=== PATIENT | female | born 1935 | race Caucasian/White ===

== ENCOUNTER 2017-12-07 19:15 | Emergency (ER) | payer MEDICARE, MEDICAID ==
[2017-12-07 19:32] VITALS: BP 179/62
[2017-12-07] MEDS ORDERED: LORazepam 2 MG/ML Syringe IVPUSH ONE (19:32)
--- NOTE | 2017-12-07 19:35 | EDM.PDOC ---
ED HPI GENERAL MEDICAL PROBLEM - General Chief Complaint: Chest Pain Stated Complaint: chest pain [id number] Time Seen by Provider: 12/07/17 19:30 Source of Information: Reports: Patient History Limitations: Reports: No Limitations - History of Present Illness INITIAL COMMENTS - FREE TEXT/NARRATIVE: onset CP about 1 1/2 hours ago. got really worried about heart attack already had 2x CABG many years ago. now has numbness in hands and left jaw feels tight. 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: Reports: Nitroglycerin Chest Pain Score (Numeric/FACES): 7 - Related Data Allergies Allergy/AdvReac Type Severity Reaction Status Date / Time flu shot Allergy Difficulty Uncoded 02/21/17 15:08 Breathing Home Meds: Home Meds Aspirin [Halfprin] 81 mg PO DAILY 05/14/13 [History] Atenolol [Tenormin] 50 mg PO DAILY 05/14/13 [History] Clopidogrel [Plavix] 75 mg PO DAILY 05/14/13 [History] Esomeprazole [NexIUM] 20 mg PO DAILY 05/14/13 [History] Levothyroxine 25 mcg PO DAILY 05/14/13 [History] Tiotropium [Spiriva Handihaler] 1 puff INH DAILY 05/14/13 [History] Simvastatin [Zocor] 40 mg PO DAILY 06/10/16 [History] Nitroglycerin [Nitrostat] 1 tab SL ASDIRECTED PRN 02/21/17 [History] Albuterol Sulfate 1 inhalation NEB TID PRN 12/07/17 [History] Atenolol [Tenormin] 50 mg PO DAILY 12/07/17 [History] Ciprofloxacin HCl [Cipro] 500 mg PO TIDAC 12/07/17 [History] Isosorbide Mononitrate [Imdur] 30 mg PO DAILY 12/07/17 [History] LORazepam [Ativan] 0.5 mg PO DAILY PRN 12/07/17 [History] metroNIDAZOLE [Flagyl] 500 mg PO TID 12/07/17 [History] Past Medical History Cardiovascular History: Reports: Bypass, CAD, High Cholesterol, Hypertension Respiratory History: Reports: COPD Gastrointestinal History: Reports: GERD Musculoskeletal History: Reports: Other (See Below) Other Musculoskeletal History: myalgia Psychiatric History: Reports: Anxiety Endocrine/Metabolic History: Reports: Diabetes, Type II, Hypothyroidism Social & Family History - Caffeine Use Caffeine Use: Reports: Coffee - Living Situation & Occupation Living situation: Reports: Occupation: Retired ED ROS GENERAL - Review of Systems Review Of Systems: ROS reveals no pertinent complaints other than HPI. ED EXAM, GENERAL - Physical Exam Exam: See Below Exam Limited By: No Limitations General Appearance: Alert, WD/WN, Anxious, Other (distraught) Ears: Hearing Grossly Normal Throat/Mouth: Normal Voice, No Airway Compromise Head: Atraumatic Neck: Non-Tender, Full Range of Motion Respiratory/Chest: No Respiratory Distress Cardiovascular: Regular Rate, Rhythm GI/Abdominal: Soft, Non-Tender Neurological: Alert, Oriented, Normal Cognition, Normal Gait, No Motor/Sensory Deficits, Other (rigth facial droop occurred long time ago from carotid surgery) Psychiatric: Anxious Skin Exam: Warm, Dry, Normal Color Lymphatic: No Adenopathy Course - Vital Signs Last Recorded V/S: Last Vital Signs Temp 36.3 C 12/07/17 19:30 Pulse 62 12/07/17 19:30 Resp 20 12/07/17 19:30 BP 179/62 H 12/07/17 19:30 Pulse Ox 96 12/07/17 19:30 - Orders/Labs/Meds Orders: Active Orders 24 hr Category Date Time Status EKG 12 Lead [EKG Documentation Completion] [RC] STAT Care 12/07/17 19:35 Active Labs: Laboratory Tests 12/07/17 12/07/17 12/07/17 Range/Units 19:50 19:50 21:55 WBC 5.8 (5.0-10.0) 10^3/uL RBC 4.49 (4.2-5.4) 10^6/uL Hgb 12.8 (12.0-16.0) g/dL Hct 39.3 (37.0-47.0) % MCV 87.5 (80-100) fL MCH 28.5 (27.0-34.0) pg MCHC 32.6 L (33.0-35.0) g/dL Plt Count 201 (150-450) 10^3/uL Neut % (Auto) 51.8 (42.2-75.2) % Lymph % (Auto) 30.2 (20.5-50.1) % [place] % (Auto) 11.0 H (2-8) % Eos % (Auto) 6.0 H (1.0-3.0) % Baso % (Auto) 1.0 (0.0-1.0) % Sodium 137 (135-145) mmol/L Potassium 4.0 (3.6-5.0) mmol/L Chloride 102 (101-111) mmol/L Carbon Dioxide 27.0 (21.0-31.0) mmol/L Anion Gap 12.0 BUN 12 (7-18) mg/dL Creatinine 0.7 (0.6-1.3) mg/dL Est Cr Clr Drug Dosing 50.70 mL/min Estimated GFR (MDRD) > 60 BUN/Creatinine Ratio 17.14 Glucose 113 H (74-105) mg/dL Calcium 9.5 (8.4-10.2) mg/dl Total Bilirubin 0.5 (0.2-1.0) mg/dL AST 33 (10-42) IU/L ALT 20 (10-60) IU/L Alkaline Phosphatase 42 (42-121) IU/L Troponin I < 0.02 < 0.02 (0.00-0.02) ng/ml Total Protein 6.4 L (6.7-8.2) g/dl Albumin 4.1 (3.2-5.5) g/dl Globulin 2.3 Albumin/Globulin Ratio 1.78 Meds: Medications Discontinued Medications Generic Name Dose Route Start Last Admin Trade Name Freq PRN Reason Stop Dose Admin Lorazepam 1 mg 12/07/17 19:32 12/07/17 20:03 Ativan IVPUSH 12/07/17 19:33 1 mg ONETIME ONE Administration - Re-Assessments/Exams Free Text/Narrative Re-Assessment/Exam: 12/07/17 22:31 results discussed with pt who remains pain/discomfort free. states really wants to go home. Departure - Departure Time of Disposition: 22:32 Disposition: Home, Self-Care 01 Condition: Good Clinical Impression: Atypical chest pain Instructions: Nonspecific Chest Pain, [id number] Forms: ED Department Discharge Additional Instructions: 1) rest 2) follow up with family doctor Sunday for possible STRESS TEST 3) recheck if there is any change or concern - My Orders Last 24 Hours: My Active Orders 12/07/17 19:35 EKG 12 Lead [EKG Documentation Completion] [RC] STAT - Assessment/Plan Last 24 Hours: My Active Orders 12/07/17 19:35 EKG 12 Lead [EKG Documentation Completion] [RC] STAT
[2017-12-07 20:27] LABS: CHLORIDE,CL 102 mmol/L (101-111); SODIUM,NA 137 mmol/L (135-145)
--- NOTE | 2017-12-10 16:52 | EKG ---
12/07/2017 - YE ODELL - TIME: 7:23 p.m. FINDINGS: Sinus rhythm at 62, probable old inferior infarct. [facility] /[id number]
== END 2017-12-07 22:40 | disposition home or self-care (01) ==
LOC: DL.ED 19:15
DX: R07.89 Other chest pain (principal); E11.9 Type 2 diabetes mellitus without complications; J44.9 Chronic obstructive pulmonary disease, unspecified; Z88.7 Allergy status to serum and vaccine; Z79.82 Long term (current) use of aspirin; Z79.899 Other long term (current) drug therapy
CPT/HCPCS: 36415; 71045; 80053; 84484; 85025; 93005; 96374; 99285; J2060; 93010; 99284

== ENCOUNTER 2019-01-20 14:33 | Emergency (ER) | payer MEDICARE ==
--- NOTE | 2019-01-20 14:41 | EDM.PDOC ---
ED HPI GENERAL MEDICAL PROBLEM - General Chief Complaint: Neuro Symptoms/Deficits Stated Complaint: RT SIDE SHUT DOWN/DIZZY Time Seen by Provider: 01/20/19 14:41 Source of Information: Reports: Patient, Old Records, RN, RN Notes Reviewed History Limitations: Reports: No Limitations - History of Present Illness INITIAL COMMENTS - FREE TEXT/NARRATIVE: Pt presents to ER from home by POV with c/o sudden onset of right arm and leg weakness. Pt was noted to have significant left face droop which affected her speech, but informed the children's zoo caretaker that the facial symptoms are chronic/stable and are the result of a complication from when she had a left carotid endarterectomy several years ago. Pt had a CT Head on 01/15/19 due to severe persistent headache, but denies headache at this time. She admits to recurring episodes of angina and is scheduled to see Dr. Zafar next week. Pt states that in addition to Rt sided weakness she feels some tingling in the right arm and leg as well. She denies any visual changes, difficulty with speech or swallowing. Denies current chest pain or pressure. Onset: Today, Sudden Onset Date: 01/20/19 Onset Time: 14:00 Duration: Improving Location: Reports: Upper Extremity, Right, Lower Extremity, Right Severity: Severe Improves with: Reports: None Worsens with: Reports: None Associated Symptoms: Reports: No Other Symptoms Headache Pain Score (Numeric/FACES): 9 - Related Data Allergies Allergy/AdvReac Type Severity Reaction Status Date / Time flu shot Allergy Difficulty Uncoded 01/20/19 16:00 Breathing Home Meds: Home Meds Aspirin [Halfprin] 81 mg PO DAILY 05/14/13 [History] Atenolol [Tenormin] 50 mg PO DAILY 05/14/13 [History] Clopidogrel [Plavix] 75 mg PO DAILY 05/14/13 [History] Esomeprazole [NexIUM] 20 mg PO DAILY 05/14/13 [History] Levothyroxine 25 mcg PO DAILY 05/14/13 [History] Tiotropium [Spiriva Handihaler] 1 puff INH DAILY 05/14/13 [History] Simvastatin [Zocor] 40 mg PO DAILY 06/10/16 [History] Nitroglycerin [Nitrostat] 1 tab SL ASDIRECTED PRN 02/21/17 [History] Albuterol Sulfate 1 inhalation NEB TID PRN 12/07/17 [History] Isosorbide Mononitrate [Imdur] 30 mg PO DAILY 12/07/17 [History] Past Medical History HEENT History: Reports: Impaired Vision Cardiovascular History: Reports: Angina, Bypass, CAD, High Cholesterol, Hypertension, PVD Respiratory History: Reports: COPD Gastrointestinal History: Reports: Cholelithiasis, Diverticulosis, GERD, Other ( See Below) Other Gastrointestinal History: HX of SUB ACUTE DIVERTICULITIS Genitourinary History: Reports: Urinary Incontinence 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: Musculoskeletal History: Reports: Other (See Below) Other Musculoskeletal History: myalgia Neurological History: Reports: Other (See Below) (Chronic left facial droop) Psychiatric History: Reports: Anxiety Endocrine/Metabolic History: Reports: Diabetes, Type II, Hypothyroidism - Past Surgical History Head Surgeries/Procedures: Reports: None HEENT Surgical History: Reports: Tonsillectomy Cardiovascular Surgical History: Reports: Carotid Endarterectomy, Coronary Artery Bypass Other Cardiovascular Surgeries/Procedures: TRIPLE BYPASS X2 Respiratory Surgical History: Reports: None GI Surgical History: Reports: Colonoscopy, EGD Female Surgical History: Reports: Hysterectomy, Other (See Below) Other Female Surgeries/Procedures: BLADDER SLING SURGERY Musculoskeletal Surgical History: Reports: None Social & Family History - Family History Family Medical History: Noncontributory - Caffeine Use Caffeine Use: Reports: Coffee Other Caffeine Use: 1-2 CUPS A DAY - Living Situation & Occupation Living situation: Reports: , with Family (with son) Occupation: Retired ED ROS GENERAL - Review of Systems Review Of Systems: ROS reveals no pertinent complaints other than HPI. ED EXAM, NEURO - Physical Exam Exam: See Below Exam Limited By: No Limitations General Appearance: Alert, WD/WN, No Apparent Distress Eye Exam: Bilateral Eye: EOMI, PERRL, Vision Changes (see NIH scale, decreased at Rt upper gaze) Ears: Normal External Exam, Normal Canal, Hearing Grossly Normal, Normal TMs Nose: Normal Inspection, Normal Mucosa, No Blood Throat/Mouth: Normal Inspection, Normal Lips, Normal Teeth, Normal Gums, Normal Oropharynx, Normal Voice, No Airway Compromise Head Exam: Atraumatic, Normocephalic, Other (Left facial droop) Neck: Normal Inspection, Supple, Non-Tender, Full Range of Motion Respiratory/Chest: No Respiratory Distress, Lungs Clear, Normal Breath Sounds, No Accessory Muscle Use, Chest Non-Tender Cardiovascular: Regular Rate, Rhythm, No Edema GI/Abdominal: Normal Bowel Sounds, Soft, Non-Tender, No Organomegaly, No Distention, No Abnormal Bruit, No Mass Neurological: Alert, Normal Mood/Affect, Oriented x 3, Other (Initial NIH score = 7 per children's zoo caretaker. At time of exam symptoms were nearly resolved with NIH score of 1 for vision.) Back Exam: Normal Inspection Extremities: Normal Inspection, Normal Range of Motion, Non-Tender, No Pedal Edema, Normal Capillary Refill Psychiatric: Normal Affect, Normal Mood Skin Exam: Warm, Dry, Intact, Normal Color, No Rash EKG INTERPRETATION EKG Date: 01/20/19 Time: 14:55 Rhythm: Other (sinus rhythm) Rate (Beats/Min): 67 [place]: Normal P-Wave: Present QRS: LBBB ST-T: Normal QT: Normal Comparison: Change From Previous EKG Course - Vital Signs Last Recorded V/S: Last Vital Signs Temp 97.6 F 01/20/19 15:00 Pulse 64 01/20/19 15:00 Resp 16 01/20/19 15:00 BP 157/65 H 01/20/19 15:00 Pulse Ox 92 L 01/20/19 15:00 - Orders/Labs/Meds Orders: Active Orders 24 hr Category Date Time Status Blood Glucose Check, Bedside [RC] ONETIME Care 01/20/19 14:45 Active EKG 12 Lead [EKG Documentation Completion] [RC] STAT Care 01/20/19 14:42 Active NIH Stroke Scale [RC] ASDIRECTED Care 01/20/19 14:42 Active Peripheral IV Care [RC] . DIRECTED Care 01/20/19 14:45 Active Peripheral IV Insertion Adult [OM.PC] Stat Oth 01/20/19 14:42 Ordered Labs: Laboratory Tests 01/20/19 01/20/19 01/20/19 Range/Units 14:52 14:52 14:52 WBC 7.3 (5.0-10.0) 10^3/uL RBC 4.28 (4.2-5.4) 10^6/uL Hgb 12.4 (12.0-16.0) g/dL Hct 37.5 (37.0-47.0) % MCV 87.6 (80-100) fL MCH 29.0 (27.0-34.0) pg MCHC 33.1 (33.0-35.0) g/dL Plt Count 231 (150-450) 10^3/uL Neut % (Auto) 70.8 (42.2-75.2) % Lymph % (Auto) 16.7 L (20.5-50.1) % [place] % (Auto) 9.9 H (2-8) % Eos % (Auto) 2.2 (1.0-3.0) % Baso % (Auto) 0.4 (0.0-1.0) % PT 10.2 (9.0-12.0) SEC INR 1.0 (0.9-1.2) APTT 23.6 (22.0-34.0) SEC Sodium 132 L (135-145) mmol/L Potassium 4.1 (3.6-5.0) mmol/L Chloride 94 L (101-111) mmol/L Carbon Dioxide 27.0 (21.0-31.0) mmol/L Anion Gap 15.1 BUN 14 (7-18) mg/dL Creatinine 0.6 (0.6-1.3) mg/dL Est Cr Clr Drug Dosing 60.83 mL/min Estimated GFR (MDRD) > 60 BUN/Creatinine Ratio 23.33 Glucose 142 H (74-105) mg/dL POC Glucose (83-110) mg/dl Calcium 8.7 (8.4-10.2) mg/dl Total Bilirubin 0.7 (0.2-1.0) mg/dL AST 45 H (10-42) IU/L ALT 50 (10-60) IU/L Alkaline Phosphatase 57 (42-121) IU/L Troponin I 0.03 H* (0.00-0.02) ng/ml Total Protein 6.5 L (6.7-8.2) g/dl Albumin 4.0 (3.2-5.5) g/dl Globulin 2.5 Albumin/Globulin Ratio 1.60 Urine Color (YELLOW) Urine Appearance (CLEAR) Urine pH (5.0-9.0) Ur Specific [place] (1.005-1.030) Urine Protein (NEGATIVE) Urine Glucose (UA) (NEGATIVE) Urine Ketones (NEGATIVE) Urine Occult Blood (NEGATIVE) Urine Nitrite (NEGATIVE) Urine Bilirubin (NEGATIVE) Urine Urobilinogen (0.2-1.0) mg/dL Ur Leukocyte Esterase (NEGATIVE) Urine Opiates Screen (NEGATIVE) Ur Oxycodone Screen (NEGATIVE) Urine Methadone Screen (NEGATIVE) Ur Barbiturates Screen (NEGATIVE) U Tricyclic Antidepress (NEGATIVE) Ur Phencyclidine Scrn (NEGATIVE) Ur Amphetamine Screen (NEGATIVE) U Methamphetamines Scrn (NEGATIVE) Urine MDMA Screen (NEGATIVE) U Benzodiazepines Scrn (NEGATIVE) Urine Cocaine Screen (NEGATIVE) U Marijuana (THC) Screen (NEGATIVE) 01/20/19 01/20/19 01/20/19 Range/Units 14:52 15:30 15:30 WBC (5.0-10.0) 10^3/uL RBC (4.2-5.4) 10^6/uL Hgb (12.0-16.0) g/dL Hct (37.0-47.0) % MCV (80-100) fL MCH (27.0-34.0) pg MCHC (33.0-35.0) g/dL Plt Count (150-450) 10^3/uL Neut % (Auto) (42.2-75.2) % Lymph % (Auto) (20.5-50.1) % [place] % (Auto) (2-8) % Eos % (Auto) (1.0-3.0) % Baso % (Auto) (0.0-1.0) % PT (9.0-12.0) SEC INR (0.9-1.2) APTT (22.0-34.0) SEC Sodium (135-145) mmol/L Potassium (3.6-5.0) mmol/L Chloride (101-111) mmol/L Carbon Dioxide (21.0-31.0) mmol/L Anion Gap BUN (7-18) mg/dL Creatinine (0.6-1.3) mg/dL Est Cr Clr Drug Dosing mL/min Estimated GFR (MDRD) BUN/Creatinine Ratio Glucose (74-105) mg/dL POC Glucose 130 H (83-110) mg/dl Calcium (8.4-10.2) mg/dl Total Bilirubin (0.2-1.0) mg/dL AST (10-42) IU/L ALT (10-60) IU/L Alkaline Phosphatase (42-121) IU/L Troponin I (0.00-0.02) ng/ml Total Protein (6.7-8.2) g/dl Albumin (3.2-5.5) g/dl Globulin Albumin/Globulin Ratio Urine Color Yellow (YELLOW) Urine Appearance Clear (CLEAR) Urine pH 6.5 (5.0-9.0) Ur Specific [place] 1.020 (1.005-1.030) Urine Protein Negative (NEGATIVE) Urine Glucose (UA) Negative (NEGATIVE) Urine Ketones Negative (NEGATIVE) Urine Occult Blood Negative (NEGATIVE) Urine Nitrite Negative (NEGATIVE) Urine Bilirubin Negative (NEGATIVE) Urine Urobilinogen 0.2 (0.2-1.0) mg/dL Ur Leukocyte Esterase Negative (NEGATIVE) Urine Opiates Screen Negative (NEGATIVE) Ur Oxycodone Screen Negative (NEGATIVE) Urine Methadone Screen Negative (NEGATIVE) Ur Barbiturates Screen Negative (NEGATIVE) U Tricyclic Antidepress Negative (NEGATIVE) Ur Phencyclidine Scrn Negative (NEGATIVE) Ur Amphetamine Screen Negative (NEGATIVE) U Methamphetamines Scrn Negative (NEGATIVE) Urine MDMA Screen Negative (NEGATIVE) U Benzodiazepines Scrn Positive H (NEGATIVE) Urine Cocaine Screen Negative (NEGATIVE) U Marijuana (THC) Screen Negative (NEGATIVE) Meds: Medications Discontinued Medications Generic Name Dose Route Start Last Admin Trade Name Freq PRN Reason Stop Dose Admin Sodium Chloride 10 ml 01/20/19 14:42 01/20/19 15:17 Saline Flush FLUSH 10 ml ASDIRECTED PRN Administration Keep Vein Open - Radiology Interpretation Free Text/Narrative:: Head CT: Chronic multi-infarct ischemic changes. No new intracranial mass, hydrocephalus or bleed. See rad report. Chest x-ray: Subtle cardiovascular decompensation compared to November 2017 per rad report. - Re-Assessments/Exams Free Text/Narrative Re-Assessment/Exam: 01/20/19 14:47 Dr. Umana consulted via [facility], and advises Sx's consistent with TIA, but in high risk pt and therefore pt should be transferred to [facility] for emergent stroke risk evaluation and observation. Dr. Barron accepts pt as a direct admit. Departure - Departure Time of Disposition: 15:29 Disposition: DC/Tfer to Acute Hospital 02 Condition: Serious Clinical Impression: TIA (transient ischemic attack), History of angina - Discharge Information *PRESCRIPTION DRUG MONITORING PROGRAM REVIEWED*: No *COPY OF PRESCRIPTION DRUG MONITORING REPORT IN PATIENT DYLON: No Referrals: PCP,Unknown [Primary Care Provider] - Forms: ED Department Discharge, Interfacility Transfer GIUSEPPE - My Orders Last 24 Hours: My Active Orders 01/20/19 14:42 EKG 12 Lead [EKG Documentation Completion] [RC] STAT NIH Stroke Scale [RC] ASDIRECTED Peripheral IV Insertion Adult [OM.PC] Stat 01/20/19 14:45 Blood Glucose Check, Bedside [RC] ONETIME Peripheral IV Care [RC] . DIRECTED - Assessment/Plan Last 24 Hours: My Active Orders 01/20/19 14:42 EKG 12 Lead [EKG Documentation Completion] [RC] STAT NIH Stroke Scale [RC] ASDIRECTED Peripheral IV Insertion Adult [OM.PC] Stat 01/20/19 14:45 Blood Glucose Check, Bedside [RC] ONETIME Peripheral IV Care [RC] . DIRECTED
[2019-01-20] MEDS ORDERED: Sodium Chloride 0.9% 10 ML Syringe FLUSH PRN (14:42)
--- NOTE | 2019-01-20 15:05 | CT ---
EXAMINATION: Head wo Cont SEX: Female AGE: 83 years CLINICAL HISTORY: 83-year-old female left facial droop and Rt sided motor weakness ("normal 1 hour ago"). Comparison exam 15 January this hypertensive female with headache and coronary artery disease revealed "multi infarcts ischemic disease". Scan technique: Volume acquisition of data emergency unenhanced CT scan of the head and brain obtained with the patient lying supine on the Siemens multi slice scanner [place], [place]. All data archived in the PACS system for storage, reformatting axial/sagittal/coronal and study (bone/brain windows). INTERPRETATION: 1. 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 No new edema or mass effect on the underlying cerebral sulci or ipsilateral ventricle. 2. Mild atrophy and underlying mirror-image normal ventricular system. Midline arachnoid cyst posterior fossa. 3. Uniformly thick bony calvarium. No sign of skull fracture or new extracerebral/intracranial epidural or subdural hematoma. 4. Cerebellum and brainstem unremarkable. 5. No sign of acute intracerebral/intraventricular/subarachnoid bleed. 6. Symmetric clear pneumatization of the paranasal and mastoid sinuses. Nasal septum is straight midline. CONCLUSION: Chronic multi-infarct ischemic changes. No new intracranial mass, hydrocephalus or bleed.
--- NOTE | 2019-01-20 15:10 | CR ---
EXAMINATION: Chest 1V Frontal SEX: Female AGE: 83 years CLINICAL HISTORY: 83-year-old hypertensive female complaining of chest pain and right-sided weakness. INTERPRETATION: Chronic cardiomegaly and relatively mild increase venous congestion since 07 December 2017 comparison film. Sternotomy wires and external threat monitoring analyst leads. No alveolar edema or dependent pleural fluid accumulation. No new lung mass, hilar lymphadenopathy or focal lobar pneumonia. No pneumothorax. CONCLUSION: Subtle cardiovascular decompensation since November 2017. BNP? EKG?
[2019-01-20 15:12] VITALS: BP 157/65; PULSE 64
[2019-01-20 15:22] LABS: ANION GAP 15.1; CHLORIDE,CL 94 mmol/L (101-111); SODIUM,NA 132 mmol/L (135-145)
== END 2019-01-20 15:55 ==
LOC: DL.ED 14:33
DX: G45.9 Transient cerebral ischemic attack, unspecified (principal); I25.10 Atherosclerotic heart disease of native coronary artery without angina pectoris; J44.9 Chronic obstructive pulmonary disease, unspecified; I10 Essential (primary) hypertension; G21.9 Secondary parkinsonism, unspecified; E11.9 Type 2 diabetes mellitus without complications; E03.9 Hypothyroidism, unspecified; Z79.82 Long term (current) use of aspirin; Z79.01 Long term (current) use of anticoagulants; Z79.899 Other long term (current) drug therapy; Z79.890 Hormone replacement therapy; Z88.7 Allergy status to serum and vaccine; Z86.79 Personal history of other diseases of the circulatory system
CPT/HCPCS: 36415; 70450; 71045; 80053; 80305-QW; 81003; 82962; 84484; 85025; 85610; 85730; 93005; 99285-25